=== PATIENT | female | born 1925 | race Hispanic/Latino ===

== ENCOUNTER 2016-12-13 23:43 | Emergency (ER) | payer SELFPAY ==
[2016-12-14] MEDS ORDERED: Ibuprofen 200 MG TAB ONE (00:08)
--- NOTE | 2016-12-14 08:29 | RAD ---
RIGHT SHOULDER 3 VIEWS: Date: 12/14/16 HISTORY: Right shoulder pain. FINDINGS: There are degenerative changes in the acromioclavicular and glenohumeral joints. The high-riding hum eral head is noted consistent with a chronic rotator cuff tear. No acute fracture, dislocation, or b alireza destruction is seen. IMPRESSION: Right shoulder osteoarthritis. POS: [facility]
== END 2016-12-14 01:40 | disposition home or self-care (01) ==
LOC: ERS 23:43
DX: M70.811 Other soft tissue disorders related to use, overuse and pressure, right shoulder (principal); M54.2 Cervicalgia